=== PATIENT | female | born 1990 | race Hispanic/Latino ===

== ENCOUNTER 2021-03-13 12:34 | Emergency (ER) | payer MEDICAID ==
--- NOTE | 2021-03-13 15:55 | Emergency Department Report ---
ED Lower Extremity HPI - General Chief Complaint: Extremity Injury, Lower Stated Complaint: FOOT PAIN Time Seen by Provider: 03/13/21 15:47 Source: patient Mode of arrival: Ambulatory Limitations: No Limitations - History of Present Illness Initial Comments: 30-year-old female presents to the emergency room complaining of left ankle injury. Patient states approximate 4 AM this morning she got out of bed and her left ankle gave and twisted. She comes in with pain and swelling. She has not taken anything for her discomfort. She has a past medical history of hyperthyroidism but is currently on no meds. She has no known drug allergies. Last menstrual period was 02/16/2021. She states she she is able to move her toes. MD Complaint: ankle injury -: This morning Time: 04:00 Injury: Ankle: Left Type of Injury: inversion Place: home Severity scale (0 -10): 8 Improves With: immobilization Worsens With: movement, palpation Context: fell out of bed Associated Symptoms: swelling, unable to bear weight - Related Data Home Medications Medication Instructions Recorded Confirmed Last Taken Levothyroxine [Synthroid] 125 mcg PO QAM 06/18/15 06/18/15 06/17/15 09:00 Allergies Allergy/AdvReac Type Severity Reaction Status Date / Time Penicillins Allergy Hives Verified 06/18/15 12:50 ED Review of Systems ROS: Stated complaint: FOOT PAIN Other details as noted in HPI Comment: All other systems reviewed and negative ED Past Medical Hx - Past Medical History Additional medical history: hypothyriod - Social History Smoking Status: Never Smoker Substance Use Type: None - Medications Home Medications: Home Medications Medication Instructions Recorded Confirmed Last Taken Type Levothyroxine [Synthroid] 125 mcg PO QAM 06/18/15 06/18/15 06/17/15 09:00 History ED Physical Exam - General Limitations: No Limitations General appearance: alert, in no apparent distress - Head Head exam: Present: atraumatic, normocephalic - Eye Eye exam: Present: normal appearance - ENT ENT exam: Present: mucous membranes moist - Neck Neck exam: Present: normal inspection, full ROM - Respiratory Respiratory exam: Absent: respiratory distress, accessory muscle use - Cardiovascular Cardiovascular Exam: Present: regular rate - Expanded Lower Extremity Exam Left Hip exam: Present: normal inspection Upper Leg exam: Present: normal inspection Knee exam: Present: normal inspection Lower Leg exam: Present: normal inspection Ankle exam: Present: full ROM, tenderness (Lateral malleolus), swelling (Lateral malleolus). Absent: erythema Foot/Toe exam: Present: normal inspection, full ROM. Absent: tenderness, swelling Neuro vascular tendon exam: Present: no vascular compromise - Back Exam Back exam: Present: normal inspection - Neurological Exam Neurological exam: Present: alert, oriented X3 - Psychiatric Psychiatric exam: Present: normal affect, normal mood - Skin Skin exam: Present: warm, dry, intact, normal color. Absent: rash ED Course Vital Signs 03/13/21 13:04 Pulse Rate 102 H Blood Pressure 132/78 O2 Sat by Pulse 100 Oximetry ED Lower Extremity MDM - Radiology Data Radiology results: report reviewed Accession No. 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 COMPARISON: None. IMPRESSION: Mild soft tissue swelling or edema is suspected. No acute osseous abnormality or joint pathology is detected. Signer Name: Flavio Banerjee Jr, MD Signed: 03/13/2021 4:21 PM Workstation Name: [id number] Transcribed By: TTR Dictated By: FLAVIO BANERJEE JR, MD Electronically Authenticated By: FLAVIO BANERJEE JR, MD Signed Date/Time: 03/13/21 1621 DD/ 19 TD/TT: - Medical Decision Making 30-year-old female presents to the emergency room complaining of left ankle injury. Patient states approximate 4 AM this morning she got out of bed and her left ankle gave and twisted. She comes in with pain and swelling. She has not taken anything for her discomfort. She has a past medical history of hyperthyroidism but is currently on no meds. She has no known drug allergies. Last menstrual period was 02/16/2021. She states she she is able to move her toes. X-ray of left ankle has been ordered. Critical care attestation.: If time is entered above; I have spent that time in minutes in the direct care of this critically ill patient, excluding procedure time. ED Disposition Clinical Impression: Left ankle sprain Disposition: HOME / SELF CARE / HOMELESS Is pt being admited?: No Does the pt Need Aspirin: No Condition: Stable Instructions: Ankle Sprain, [id number] Additional Instructions: X-ray shows no acute abnormality of the bone or joint. Recommend ibuprofen or Tylenol for pain management. Wear your ankle splint. Follow-up with an orthopedic provider if you have any further concerns. Referrals: PRIMARY CAREMD [Primary Care Provider] - 3-5 Days SCAR GOOD MD [Staff Physician] - 3-5 Days Forms: Work/School Release Form(ED) Time of Disposition: 16:35
--- NOTE | 2021-03-13 16:25 | XRay Report ---
LEFT ANKLE 3 VIEWS INDICATION: fell getting out of bed this morning injury to left ankle. COMPARISON: None. IMPRESSION: Mild soft tissue swelling or edema is suspected. No acute osseous abnormality or joint p athology is detected. Signer Name: Flavio Banerjee Jr, MD Signed: 03/13/2021 4:21 PM Workstation Name: [id number]
[2021-03-13 17:25] VITALS: BP 120/84
== END 2021-03-13 17:26 | disposition home or self-care (01) ==
LOC: ED 12:34
DX: S93.402A Sprain of unspecified ligament of left ankle, initial encounter (principal); Z88.0 Allergy status to penicillin; X58.XXXA Exposure to other specified factors, initial encounter; Y93.89 Activity, other specified; Y92.89 Other specified places as the place of occurrence of the external cause; Y99.8 Other external cause status
CPT/HCPCS: 99283